=== PATIENT | female | born 1960 | race Caucasian/White ===

== ENCOUNTER → 2017-09-17 | Outpatient (CLI) | payer BC ==
[~2017-09-17] MED LIST: ASPI81TA28 PO; CHOL1CAP30 PO; CIPR-255 PO; CLR10 PO; CRANLIQ PO; CYAN100020 PO; CYAN1SUB6 PO; LOSA1TAB PO; METH10TA6 PO; OXYC-57 PO; PERFLUTREN LIPID MICROSPHERE (DEFINITY) IV ONE; PROP20TA67 PO; PROP80CA PO
[2017-09-17 10:37] LABS: ALT/SGPT 22 U/L (12-78); AST/SGOT 13 U/L (15-37); BLOOD UREA NITROGEN 15 mg/dl (7-18); CALCIUM 8.8 mg/dl (8.5-10.1); CARBON DIOXIDE 28 mmol/L (21-32); CREATININE 0.96 mg/dl (0.60-1.20); GLUCOSE,FASTING 92 mg/dl (70-99); POTASSIUM 3.7 mmol/L (3.5-5.1); SODIUM 140 mmol/L (136-145)
[2017-09-17 10:45] LABS: ALBUMIN 3.9 gm/dl (3.4-5.0); ALKALINE PHOSPHATASE 88 U/L (45-117); CHOLESTEROL 202 mg/dl (0-200); LDL CHOLESTEROL CALCULATED 120 mg/dl; TOTAL PROTEIN 7.7 gm/dl (6.4-8.2)
--- NOTE | 2017-09-17 15:12 | EXERCISE STRESS ECHO ---
*NOTICE TO RECEIVING [employer]Y This information is strictly Confidential and protected under [place] law. [place] law prohibits you from making any further disclosure of this information unless further disclosure is expressly permitted by the written consent of the person to whom it pertains or is authorized by law. A general authorization for the release of medical or other information is not sufficient for this purpose. Hospital accepts no responsibility if the information is made available to any other person, INCLUDING THE PATIENT. Interpretation Summary * Name: KRISTIN GRANADOS Study Date: 09/17/2017 09:22 AM BP: 137/89 mmHg * Patient Location: [facility] HR: 56 * : 1960 (M/d/yyyy) Gender: Female Height: 67 in * Age: 57 yrs Ethnicity: [place] Weight: 175 lb * Ordering Physician: Rosa Carroll * Referring Physician: Rosa Carroll . PA-C * Performed By: oRsa Toure RDCS * * Reason For Study: CHEST PAIN * BSA: 1.9 m2 * -- Conclusions -- * STRESS STUDY: * No echocardiographic or EKG evidence of myocardial ischemia having achieved heart rate adequate for diagnostic purposes. * The patient's presenting complaint of chest discomfort was not reproduced. * The exercise test was terminated due to fatigue with the patient having achieved an above average workload of 11 METs. * A hypertensive response to exercise was observed. * Frequent asymptomatic ventricular ectopy occurred including ventricular bigeminy and a ventricular couplet as described below. * The patient had no subjective palpitations and denies recent or palpitations, or recent or past history of syncope. * RESTING STUDY: * There is mild concentric left ventricular hypertrophy. * The LV Ejection Fraction = 55-60%. * Grade I diastolic dysfunction, (abnormal relaxation pattern). * There is no significant valvular heart disease. Procedure Details * ECHOEX, CPT #57525 * A contrast injection of Definity was performed to improve assessment of LV function. * Contrast was injected into an intravenous site in the right arm. * One vial of Definity ultrasound contrast was diluted in normal saline to a total volume of 10 ml. A total of '3.5' ml of solution was administered during imaging. * Lot # [id number] of Definity utilized for procedure. * Expiration date NOV 03. * The attending nurse who injected the contrast agent was JOHN PEGUERO RN. * ECHO DOPPLER, CPT #[id number] * ECHO COLOR FLOW, CPT #[id number] Left Ventricle * The left ventricle is normal in size. * There is mild concentric left ventricular hypertrophy. * Left ventricular systolic function is normal. * Ejection Fraction = 55-60%. * Resting wall motion: Normal. Stress wall motion: Appropriate increase in Left ventricular systolic function and decrease in cavity size. No stress induced segmental wall motion abnormalities. Right Ventricle * The right ventricle is normal in size and function. Atria * The left atrial size is normal. * Right atrial size is normal. * No ASD detected; PFO is not assessed. Mitral Valve * The mitral valve is normal. * There is no mitral valve stenosis. * Significant mitral regurgitation is absent. Tricuspid Valve * The tricuspid valve is normal. * There is no tricuspid stenosis. * Significant tricuspid regurgitation is absent. * Doppler findings do not suggest pulmonary hypertension. Aortic Valve * The aortic valve is trileaflet. * No hemodynamically significant valvular aortic stenosis. * No aortic regurgitation is present. Pulmonic Valve * The pulmonic valve is not well visualized. Great Vessels * The aortic root is normal size. Pericardium * There is no pericardial effusion. Stress Parameters * The baseline EKG revealed sinus bradycardia at [address] segments and no ectopy. * The stress EKG response was negative for ischemia. Frequent ventricular ectopy was observed that started during stage 2 of exercise at 5 minutes and 21 seconds with sinus rhythm and frequent PVCs in a pattern of ventricular bigeminy. Intermittent ventricular bigeminy persisted through stage 3 of exercise . A ventricular couplet occurred at 9 minutes and 15 seconds. The frequent ventricular ectopy resolved at peak exercise and returned in the post exercise recovery interval. * The stress portion of this study was personally supervised by the undersigned interpreting physician. * Rest heart rate was '56' BPM. * Rest blood pressure was '137/89' * Maximum heart rate achieved was 148 bpm. * Maximum heart rate was 90 % of maximum age-predicted heart rate. * Maximum blood pressure was '229/91' * Total exercise time was '10:04' * Maximum exercise MET level achieved was '11.80' METS * Maximum treadmill speed was '4.20' miles per hour. * Maximum treadmill elevation was '16.00'% grade. * Exercise was terminated due to 'ACHIEVING TARGET HR' Left Ventricular Diastolic Function * Grade I diastolic dysfunction, (abnormal relaxation pattern). MMode 2D Measurements and Calculations IVSd 1.3 cm IVSs 1.9 cm LVIDd 4.1 cm LVIDs 2.8 cm LVPWd 1.4 cm LVPWs 2.1 cm IVS/LVPW 0.94 FS 31.8 % EDV(Teich) 76.3 ml ESV(Teich) 30.3 ml EF(Teich) 60.3 % EDV(cubed) 71.4 ml ESV(cubed) 22.6 ml EF(cubed) 68.3 % % IVS thick 45.2 % % LVPW thick 50.2 % LV mass(C)d 210.7 grams LV mass(C)dI 110.3 grams/m\S\2 LV mass(C)s 248.7 grams LV mass(C)sI 130.2 grams/m\S\2 SV(Teich) 46.1 ml SI(Teich) 24.1 ml/m\S\2 SV(cubed) 48.8 ml SI(cubed) 25.5 ml/m\S\2 Ao root diam 3.0 cm Ao root area 7.2 cm\S\2 LA dimension 3.4 cm LA/Ao 1.1 LVAd ap4 34.6 cm\S\2 LVLd ap4 8.7 cm EDV(MOD-sp4) 113.1 ml EDV(sp4-el) 117.3 ml LVAs ap4 18.4 cm\S\2 LVLs ap4 7.1 cm ESV(MOD-sp4) 43.4 ml ESV(sp4-el) 40.3 ml EF(MOD-sp4) 61.7 % EF(sp4-el) 65.6 % LVAd ap2 32.8 cm\S\2 LVLd ap2 8.6 cm EDV(MOD-sp2) 105.4 ml EDV(sp2-el) 106.3 ml LVAs ap2 17.6 cm\S\2 LVLs ap2 6.7 cm ESV(MOD-sp2) 41.4 ml ESV(sp2-el) 39.5 ml EF(MOD-sp2) 60.7 % EF(sp2-el) 62.9 % LVLd %diff -0.89 % EDV(MOD-bp) 110.1 ml LVLs %diff -6.38 % ESV(MOD-bp) 43.7 ml EF(MOD-bp) 60.3 % SV(MOD-sp4) 69.8 ml SI(MOD-sp4) 36.5 ml/m\S\2 SV(MOD-sp2) 64.0 ml SI(MOD-sp2) 33.5 ml/m\S\2 SV(MOD-bp) 66.4 ml SI(MOD-bp) 34.8 ml/m\S\2 SV(sp4-el) 77.0 ml SI(sp4-el) 40.3 ml/m\S\2 SV(sp2-el) 66.9 ml SI(sp2-el) 35.0 ml/m\S\2 Doppler Measurements and Calculations MV E max tomasz 53.4 cm/sec MV A max tomasz 48.9 cm/sec MV E/A 1.1 MV dec time 0.33 sec Ao V2 max 119.1 cm/sec Ao max PG 5.7 mmHg Ao max PG (full) 1.1 mmHg LV V1 max PG 4.6 mmHg LV V1 max 106.8 cm/sec
== END | disposition home or self-care (01) ==
LOC: C.CPL 09:03
PROVIDERS: ATTEND Physician Assistant
DX: Z00.00 Encounter for general adult medical examination without abnormal findings (principal); R07.89 Other chest pain; E05.90 Thyrotoxicosis, unspecified without thyrotoxic crisis or storm

== ENCOUNTER → 2017-10-17 | Outpatient (CLI) | payer BC ==
[~2017-10-17] MED LIST changes: -ASPI81TA28 PO; -CLR10 PO; -CYAN1SUB6 PO; -LOSA1TAB PO; -OXYC-57 PO; -PERFLUTREN LIPID MICROSPHERE (DEFINITY) IV ONE; -PROP20TA67 PO
[2017-10-17 12:41] LABS: ALBUMIN 3.7 gm/dl (3.4-5.0); TOTAL PROTEIN 7.1 gm/dl (6.4-8.2)
== END | disposition home or self-care (01) ==
LOC: C.LABPBG 07:42
PROVIDERS: ATTEND Physician Assistant
DX: R17 Unspecified jaundice (principal)